=== PATIENT | male | born 1975 ===

== ENCOUNTER 2023-11-24 21:01 | Emergency (ER) | payer BC ==
[~2023-11-24] VITALS: Ht 188 cm; Wt 170.0 kg
[2023-11-24 21:21] VITALS: BP 163/94; PULSE 86; RESP 16; TEMP 98; O2SAT 97
== END 2023-11-24 22:20 | disposition home or self-care (01) ==
LOC: ER 21:03
DX: S40.862A Insect bite (nonvenomous) of left upper arm, initial encounter (principal); W57.XXXA Bitten or stung by nonvenomous insect and other nonvenomous arthropods, initial encounter; Y93.89 Activity, other specified; Y92.89 Other specified places as the place of occurrence of the external cause; Y99.8 Other external cause status
CPT/HCPCS: 99281